=== PATIENT | male | born 1975 | race Caucasian/White ===

== ENCOUNTER 2018-08-22 06:29 | Emergency (ER) | payer BC ==
[~2018-08-22] VITALS: Ht 177.8 cm; Wt 90.7 kg
[2018-08-22] MEDS ORDERED: PEPCID20 MG PO (07:27)
[2018-08-22] MEDS ORDERED: MEDROL DOSEPAK4 MG PO (07:27)
== END 2018-08-22 07:29 | disposition home or self-care (01) ==
LOC: ED 06:29
DX: T78.3XXA Angioneurotic edema, initial encounter (principal)